=== PATIENT | male | born 1985 | race Caucasian/White ===

== ENCOUNTER 2017-09-19 13:09 | Day surgery (SDC) | payer OTHER ==
[2017-09-18 15:44] VITALS: BMI 55.7
[2017-09-19] MEDS ORDERED: Lidocaine 1% PF 5 ML VIAL ONE (13:10)
[2017-09-19] MEDS ORDERED: PROPOFOL 200 MG/20 ML VIAL ONE (13:10)
[2017-09-19] MEDS ORDERED: Midazolam HCl 2 mg/2 ml Vial ONE (14:50)
--- NOTE | 2017-09-19 15:50 | OP ---
PREOPERATIVE DIAGNOSES: Persistent nausea, vomiting, and chronic diarrhea. DESCRIPTION OF PROCEDURE: After informed consent was obtained, the patient was placed in the left la teral decubitus position. Anesthesia was administered per the Anesthesia Department. Forward-viewin g endoscope was inserted into esophagus under direct visualization with ease and passed to the second portion of the duodenum with ease. Second portion of the duodenum and duodenal bulb were normal. T he pylorus, antrum, body, fundus, and cardia were normal except for some mild nonerosive gastritis. Biopsies were taken. Retroflexion in the stomach was normal. The esophagus was normal throughout. Random biopsies were performed from the second portion of the duodenum. ASSESSMENT: Mild nonerosive gastritis in the body of the stomach - status post biopsy, otherwise nor mal esophagogastroduodenoscopy. RECOMMENDATIONS: 1. Await histopathology. 2. Proceed with colonoscopy. DESCRIPTION OF PROCEDURE: After informed consent was obtained, the patient was placed in left latera l decubitus position. Anesthesia administered per the Anesthesia Department. Forward-viewing endosc ope was inserted into the rectum after perianal inspection and rectal exam were normal and passed to the cecum with ease. The cecum, ileocecal valve, and appendiceal orifice were normal. The ileum was normal. The prep was excellent. The ascending, transverse, descending, sigmoid, and rectum were no rmal. Retroflexion in the rectum was normal. Random biopsies were taken from both the right and lef t colon. ASSESSMENT: Normal ileal colonoscopy. RECOMMENDATIONS: 1. Await histopathology. 2. Trial of Levsin.
== END 2017-09-19 16:10 | disposition home or self-care (01) ==
LOC: SDC 13:09
PROVIDERS: ATTEND Internal Medicine Gastroenterology
PROC: 0DB98ZX Excision of Duodenum, Via Natural or Artificial Opening Endoscopic, Diagnostic (ICD-10-PCS; principal; 2017-09-19)
PROC: 0DBF8ZX Excision of Right Large Intestine, Via Natural or Artificial Opening Endoscopic, Diagnostic (ICD-10-PCS; principal; 2017-09-19)
PROC: 0DB68ZX Excision of Stomach, Via Natural or Artificial Opening Endoscopic, Diagnostic (ICD-10-PCS; principal; 2017-09-19)
PROC: 0DBG8ZX Excision of Left Large Intestine, Via Natural or Artificial Opening Endoscopic, Diagnostic (ICD-10-PCS; principal; 2017-09-19)
DX: K52.9 Noninfective gastroenteritis and colitis, unspecified (principal); R11.2 Nausea with vomiting, unspecified; Z88.0 Allergy status to penicillin
CPT/HCPCS: 88305; 88312; J2001; J2250; J2704